=== PATIENT | male | born 1970 | race Two or more races ===

== ENCOUNTER 2023-11-08 15:44 | Emergency (ER) | payer BC, OTHER ==
[~2023-11-08] VITALS: Ht 177.8 cm; Wt 109.0 kg
[2023-11-08 15:59] VITALS: BP 122/68; PULSE 77; RESP 18; O2SAT 96
== END 2023-11-09 01:07 | disposition home or self-care (01) ==
LOC: ER 15:44
DX: M79.89 Other specified soft tissue disorders (principal)
CPT/HCPCS: 93971